=== PATIENT | female | born 1980 | race Caucasian/White ===

== ENCOUNTER → 2017-04-15 | Day surgery (SDC) | payer SELFPAY, BC ==
[~2017-04-15] MED LIST: ADDERALL; ATARAX PO; BRINTELLIX10 MG PO; DEPLIN; LAMICTAL PO; LEVOTHYROXINE75 MC1 PO; LEXAPRO20 MG DOB; MONTELUKAST SOD10 MG PO; OMEPRAZOLE40 M1 PO; XOLAIR150 MG/1.2 INJ; ZANTAC150 M1 PO; ZYRTEC10 M2 PO
--- NOTE | ~2017-04-15 | EKG ---
PATIENT: MAGDA RUGGIERO UNIT #: [id number] Ventricular Rate: 80 BPM Atrial Rate: 80 BPM P-R Interval: 172 ms QRS Duration: 82 ms Q-T Interval: 412 ms QTC Calculation(Bezet): 475 ms P [place]: 45 degrees Calculated R [place]: 20 degrees Calculated T [place]: 36 degrees Diagnosis Line: Normal sinus rhythm Diagnosis Line: Low voltage QRS Diagnosis Line: Borderline ECG Diagnosis Line: Diagnosis Line: Confirmed by MANOLO SUNSHINE MD ([id number]) on Diagnosis Line: 04/16/2017 4:25:48 PM INTERPRETING MD: JONG RAUSCH
--- NOTE | ~2017-04-15 | OR ---
Unit #: [id number] #: [id number] Patient: MAGDA RUGGIERO [id number] [address] [place], [place] [address] [id number] MR#: [id number] NAME: MAGDA RUGGIERO ROOM: Date of Procedure: 04/15/2017 Admission Date: 04/15/2017 Surgeon: Emre Lang III, M.D. : 1980 Attending Physician: Emre Lang III, M.D. Primary Care Physician: Generic Doctor Not In System OPERATIVE REPORT PREOPERATIVE DIAGNOSIS Obesity. POSTOPERATIVE DIAGNOSIS Obesity. PROCEDURE PERFORMED Endoscopic removal of gastric balloon. ANESTHESIA General. SPECIMENS None. COMPLICATIONS None apparent. INDICATIONS FOR PROCEDURE This is a 36-year-old lady, who has had a gastric balloon for approximately seven months. She is here today for endoscopic removal. She had a preoperative weight of 113 kg and currently weighs 105.8 kg. DESCRIPTION OF PROCEDURE After consent was obtained, the patient was brought to the operating room and placed in the supine position. General anesthetic was administered. She was then placed in the left lateral decubitus position. I was able to easily pass an EGD scope easily into the esophagus under direct visualization. I advanced the scope all the way into the stomach. Her gastric balloon was in a good position and it was still intact. I puncture the balloon and suctioned off all the saline from the balloon itself. I then used a toothed grasper to grab hold of the balloon and this was carefully withdrawn, completely intact. There was no aspiration. I did perform inspection of the stomach including the pylorus and duodenum and this appeared normal as well. There were no ulcers. The patient tolerated the procedure without any problems and returned to recovery room in stable condition. Dictated by... Emre Lang III, M.D. Unit #: [id number] #: [id number] Patient: MAGDA RUGGIERO VCL/modl TD: 04/15/2017 14:00 JOB #: [id number] OPERATIVE REPORT Page 1 of 1 X Emre Lang III, MD X PROCEDURE OPERATIVE NOTE
[2017-04-15 11:05] LABS: HEMATOCRIT 42.1 % (35.0-45.0); HEMOGLOBIN 13.9 gm/dL (12.0-16.0); MEAN CELL VOLUME 85.6 FL (83-96); MEAN CORPUSCULAR HEMOGLOBIN 28.2 PG (28-34); MEAN CORPUSCULAR HGB CONC 32.9 g/dL (30-36); MEAN PLATELET VOLUME 7.6 FL (6.5-11.5); RED BLOOD COUNT 4.91 X10e (3.90-5.30); RED CELL DISTRIBUTION WIDTH 13.9 % (11.0-15.5); WHITE BLOOD COUNT 10.8 X10e3 (4.0-10.5)
== END | disposition home or self-care (01) ==
LOC: CSUR 09:47
PROVIDERS: Surgery
DX: E66.01 Morbid (severe) obesity due to excess calories (principal); J45.909 Unspecified asthma, uncomplicated; G47.30 Sleep apnea, unspecified; Z68.41 Body mass index [BMI] 40.0-44.9, adult; Z99.89 Dependence on other enabling machines and devices; Z79.899 Other long term (current) drug therapy; Z90.89 Acquired absence of other organs; Z98.84 Bariatric surgery status
CPT/HCPCS: 84703; 85027; 93005; J0330; J2250; J2405; J3010